=== PATIENT | female | born 1995 | race African-American/Black ===

== ENCOUNTER 2019-05-15 | Day surgery (SDC) | payer BC ==
[2019-05-15] MEDS ORDERED: PERCOCET 5/325M1 TAB PO (10:31)
== END 2019-05-15 11:20 | disposition home or self-care (01) | DRG 585 ==
PROC: 0HBU0ZZ Excision of Left Breast, Open Approach (ICD-10-PCS; principal; 2019-05-15)
DX: D24.2 Benign neoplasm of left breast (principal)
CPT/HCPCS: J0131

== ENCOUNTER 2021-07-03 12:29 | Emergency (ER) | payer BC ==
[~2021-07-03] VITALS: Ht 160 cm; Wt 45.6 kg
[~2021-07-03 12:29] MED LIST: PERCOCET 5/325M1 TAB PO
[2021-07-03 12:36] VITALS: BP 123/81
[2021-07-03] MEDS ORDERED: PENICILLN VK500 MG PO (13:02)
[2021-07-03] MEDS ORDERED: TRAMADOL HCL50 MG PO (13:02)
[2021-07-03 13:32] VITALS: BP 123/81
== END 2021-07-03 13:44 | disposition home or self-care (01) | DRG 159 ==
LOC: ED 12:29
DX: K04.7 Periapical abscess without sinus (principal)